=== PATIENT | female | born 1945 | race Caucasian/White ===

== ENCOUNTER 2022-02-14 08:38 | Outpatient (CLI) | payer OTHER | END 2022-02-14 08:51 | disposition home or self-care (01) | LOC: TOM 08:38 | DX: K62.5 Hemorrhage of anus and rectum (principal); R19.4 Change in bowel habit ==

== ENCOUNTER 2022-06-03 12:39 | Emergency (ER) | payer OTHER ==
[~2022-06-03] VITALS: Ht 157.5 cm; Wt 90.7 kg
[2022-06-03] MEDS ORDERED: SYNTHROID100 MCG PO (12:55)
[2022-06-03] MEDS ORDERED: AMLODIPINE BESYL5 MG PO (12:55)
[2022-06-03] MEDS ORDERED: SPIRIVA RESPIMAT4 G1 IH (12:58)
== END 2022-06-03 22:16 | disposition home or self-care (01) ==
LOC: ER 12:39
DX: K57.32 Diverticulitis of large intestine without perforation or abscess without bleeding (principal); Z91.041 Radiographic dye allergy status; I10 Essential (primary) hypertension; K57.90 Diverticulosis of intestine, part unspecified, without perforation or abscess without bleeding